=== PATIENT | female | born 1980 ===

== ENCOUNTER 2017-08-01 18:20 | Emergency (ER) | payer OTHER ==
[2017-08-01 18:34] VITALS: BP 167/105
[2017-08-01 18:48] LABS: Basophils % (Auto) 0.8 % (0.0-1.8); Eosinophils % (Auto) 3.3 % (0.0-4.3); Hematocrit 41.8 % (30.3-42.9); Hemoglobin 13.6 gm/dl (10.1-14.3); Mean Corpuscular HGB Conc 33 % (30-34); Mean Corpuscular Hemoglobin 32 pg (28-32); Mean Corpuscular Volume 98 fl (79-97); Platelet Count 278 K/mm3 (140-440); Red Blood Count 4.28 M/mm3 (3.65-5.03); Red Cell Distribution Width 13.9 % (13.2-15.2); White Blood Count 7.6 K/mm3 (4.5-11.0)
[2017-08-01 19:16] LABS: Alanine Aminotransferase 11 units/L (7-56); Albumin 4.6 g/dL (3.9-5); Alkaline Phosphatase 60 units/L (35-129); Anion Gap 18 mmol/L; BUN/Creatinine Ratio 14; Bilirubin,Total < 0.20 mg/dL (0.1-1.2); Blood Urea Nitrogen 11 mg/dL (7-17); Carbon Dioxide 26 mmol/L (22-30); Chloride 97.8 mmol/L (98-107); Glucose 91 mg/dL (65-100); Lipase 14 units/L (13-60); Potassium 4.4 mmol/L (3.6-5.0); Sodium 137 mmol/L (137-145); Total Protein 6.9 g/dL (6.3-8.2)
== END 2017-08-01 21:20 | disposition left against medical advice (07) ==
LOC: ED 18:20
DX: R51 Headache (principal); R42 Dizziness and giddiness; R10.9 Unspecified abdominal pain; Z53.21 Procedure and treatment not carried out due to patient leaving prior to being seen by health care provider
CPT/HCPCS: 36415; 80053; 83690; 84703; 85025; 93005; 93010